=== PATIENT | male | born 1940 | race Hispanic/Latino ===

== ENCOUNTER 2017-09-25 07:00 | Inpatient (IN) | payer OTHER, MEDICARE ==
[~2017-09-25] VITALS: Ht 167.6 cm; Wt 61.6 kg
[~2017-09-25 07:00] MED LIST: CARV6.25 PO; FURO20TA4 PO; LISI2.5T2 PO; OMEP40CA37 PO; SIMV40TA59 PO
[2017-09-25] MEDS ORDERED: ASPIRIN 325 MG TABLET ONE (07:10)
[2017-09-25 07:26] LABS: BASOPHILS % (AUTO) 0.9 % (0.0-5.0); EOSINOPHILS % (AUTO) 3.4 % (0.0-8.0); HEMATOCRIT 46.9 % (42-54); LYMPHOCYTES % (AUTO) 27.6 % (21.0-51.0); MEAN CORPUSCULAR HEMOGLOBIN 26.2 pg (27.0-33.0); MEAN CORPUSCULAR HGB CONC 31.7 g/dL (32.0-36.0); MEAN CORPUSCULAR VOLUME 82.7 fL (79-99); MONOCYTES % (AUTO) 8.1 % (3.0-13.0); NUCLEATED RED BLOOD CELLS 0.1 % (0.0-0.19); PLATELET COUNT (AUTO) 200 K/uL (130-400); RED BLOOD CELL COUNT(AUTO) 5.68 MIL/uL (4.50-6.20); RED CELL DISTRIBUTION WIDTH 20.5 % (11.0-15.5); WHITE BLOOD COUNT (AUTO) 6.9 K/uL (4.8-10.8)
[2017-09-25 07:39] LABS: CARBON DIOXIDE 30 mmol/L (21-32); CHLORIDE 106 mmol/L (101-111); CREATININE 1.4 mg/dL (0.5-1.5); GLOMERULAR FILTR. RATE CALC 52 mL/min (>60); GLUCOSE,RANDOM 123 mg/dL (70-105); POTASSIUM 4.3 mmol/L (3.5-5.1); SODIUM SERUM 143 mmol/L (136-145); UREA NITROGEN, BLOOD 25 mg/dL (7-18)
[2017-09-25 07:54] LABS: ALANINE AMINOTRANSFERASE 14 U/L (12-78); ALBUMIN 3.4 g/dL (3.5-5.0); ASPARTATE AMINOTRANSFERASE 26 U/L (10-37); BILIRUBIN,TOTAL 0.9 mg/dL (0.2-1.0); CREATINE KINASE MB < 0.5 ng/mL (0.5-3.6); CREATINE KINASE, TOTAL 34 U/L (21-232); TOTAL PROTEIN, SERUM 7.8 g/dL (6.0-8.3)
[2017-09-25 07:55] LABS: B-TYPE NATRIURETIC PEPTIDE 1140 pg/mL (0-100)
[2017-09-25 07:59] LABS: INR 1.07 (0.85-1.15); PARTIAL THROMBOPLASTIN TIME 26.6 SEC (26.3-35.5); PROTHROMBIN TIME 11.2 SEC (9.6-11.6)
[2017-09-25] MEDS ORDERED: FUROSEMIDE 10 MG/ML 4ML VIAL ONE (08:07)
[2017-09-25] MEDS ORDERED: FUROSEMIDE 10 MG/ML 2ML VIAL ONE (08:07)
[2017-09-25 20:45] VITALS: BP 100/57
[2017-09-25] MEDS ORDERED: ASPI-1005 PO (21:17)
[2017-09-25] MEDS: FUROSEMIDE 10 MG/ML 2ML VIAL IVP SCH (21:59)
[2017-09-25 23:45] VITALS: BP 101/62
[2017-09-26 03:36] VITALS: BP 116/76
[2017-09-26 07:45] VITALS: BP 106/65
[2017-09-26] MEDS: FUROSEMIDE 10 MG/ML 2ML VIAL IVP SCH ×2 (09:30→20:39)
[2017-09-26 11:18] VITALS: BP 107/68
[2017-09-26 16:31] VITALS: BP 110/61
[2017-09-26 19:33] VITALS: BP 105/67
[2017-09-26] MEDS ORDERED: [UNRECOGNIZED DRUG - CODE] IV (22:35)
[2017-09-26] MEDS ORDERED: ENOX30DI4 SQ (22:35)
[2017-09-26] MEDS ORDERED: LEVOFLOXACIN 750 MG/D5W 150 ML 150 ML ONE (23:26)
[2017-09-26] MEDS: LEVOFLOXACIN 750 MG/D5W 150 ML 150 ML IV SCH (23:32)
[2017-09-27] VITALS: BP 107/67
[2017-09-27 04:00] VITALS: BP 109/59
[2017-09-27 05:18] LABS: HEMATOCRIT 44.9 % (42-54); MEAN CORPUSCULAR HEMOGLOBIN 26.6 pg (27.0-33.0); MEAN CORPUSCULAR HGB CONC 32.6 g/dL (32.0-36.0); MEAN CORPUSCULAR VOLUME 81.5 fL (79-99); NUCLEATED RED BLOOD CELLS 0.2 % (0.0-0.19); PLATELET COUNT (AUTO) 214 K/uL (130-400); RED BLOOD CELL COUNT(AUTO) 5.51 MIL/uL (4.50-6.20); RED CELL DISTRIBUTION WIDTH 19.6 % (11.0-15.5)
[2017-09-27 05:53] LABS: CARBON DIOXIDE 27 mmol/L (21-32); CHLORIDE 98 mmol/L (101-111); CREATINE KINASE MB < 0.5 ng/mL (0.5-3.6); CREATINE KINASE, TOTAL 25 U/L (21-232); CREATININE 1.5 mg/dL (0.5-1.5); GLOMERULAR FILTR. RATE CALC 48 mL/min (>60); GLUCOSE,RANDOM 96 mg/dL (70-105); MYOGLOBIN 36 ng/mL (10-92); POTASSIUM 3.7 mmol/L (3.5-5.1); SODIUM SERUM 137 mmol/L (136-145); TROPONIN I < 0.04 ng/mL (0.00-0.06); UREA NITROGEN, BLOOD 26 mg/dL (7-18)
[2017-09-27 06:26] LABS: B-TYPE NATRIURETIC PEPTIDE 652 pg/mL (0-100)
[2017-09-27 07:00] LABS: EOSINOPHILS % (MANUAL) 4 % (1-6); LYMPHOCYTES % (MANUAL) 11 % (22-44); MAN.DIFF COMMENT-IMPRESSION MANUAL DIFFERENTIAL; MONOCYTES % (MANUAL) 13 % (2-9); REACTIVE LYMPHOCYTES 1 % (0-0); SEGMENTED NEUTROPHILS % 71 % (40-70)
[2017-09-27 07:01] LABS: PLATELET MORPHOLOGY COMMENT ADEQUATE
[2017-09-27 07:43] VITALS: BP 111/73
[2017-09-27] MEDS: LISINOPRIL 5 MG TABLET PO SCH (08:54)
[2017-09-27] MEDS: ASPIRIN 81MG TAB.CHEW PO SCH (08:54)
[2017-09-27] MEDS: ENOXAPARIN SODIUM 30 MG/0.3 ML SQ SCH (08:55)
[2017-09-27] MEDS: PANTOPRAZOLE SODIUM 40 MG TABLET.DR PO SCH (08:55)
[2017-09-27] MEDS ORDERED: LEVOFLOXACIN 750 MG/D5W 150ML BAG IV SCH (09:00)
[2017-09-27] MEDS ORDERED: CARVEDILOL 6.25 MG TABLET PO SCH (09:00)
[2017-09-27] MEDS: FUROSEMIDE 10 MG/ML 2ML VIAL IVP SCH ×2 (09:01→20:36)
[2017-09-27 11:21] VITALS: BP 99/63
[2017-09-27] MEDS ORDERED: POTASSIUM CHLORIDE 20MEQ/100ML 100 ML IV PRN (15:45)
[2017-09-27] MEDS ORDERED: POTASSIUM CHLORIDE 10% ELIXIR 20 MEQ/15 ML UDCUP PO PRN (15:45)
[2017-09-27] MEDS ORDERED: LIDOCAINE HCL-MPF 1% 2ML VIAL IVP PRN (15:45)
[2017-09-27 16:06] VITALS: BP 90/57
[2017-09-27] MEDS: POTASSIUM CHLORIDE 20 MEQ ERTAB PO PRN ×2 (16:07→18:07)
[2017-09-27 20:06] VITALS: BP 93/59
[2017-09-27] MEDS: CARVEDILOL 6.25 MG TABLET PO SCH (20:33)
[2017-09-27] MEDS: ATORVASTATIN CALCIUM 20 MG TABLET PO SCH (20:37)
[2017-09-28 00:11] VITALS: BP 110/66
[2017-09-28 04:30] VITALS: BP 105/68
[2017-09-28 05:17] LABS: HEMATOCRIT 45.5 % (42-54); MEAN CORPUSCULAR HEMOGLOBIN 26.9 pg (27.0-33.0); MEAN CORPUSCULAR HGB CONC 32.8 g/dL (32.0-36.0); PLATELET COUNT (AUTO) 222 K/uL (130-400); RED BLOOD CELL COUNT(AUTO) 5.54 MIL/uL (4.50-6.20); RED CELL DISTRIBUTION WIDTH 19.5 % (11.0-15.5)
[2017-09-28 05:30] LABS: CREATININE 1.7 mg/dL (0.5-1.5); POTASSIUM 4.6 mmol/L (3.5-5.1)
[2017-09-28 05:35] LABS: BAND NEUTROPHILS % (MANUAL) 10 % (0-2); EOSINOPHILS % (MANUAL) 5 % (1-6); LYMPHOCYTES % (MANUAL) 18 % (22-44); MAN.DIFF COMMENT-IMPRESSION MANUAL DIFFERENTIAL; MONOCYTES % (MANUAL) 6 % (2-9); PLATELET MORPHOLOGY COMMENT ADEQUATE; SEGMENTED NEUTROPHILS % 61 % (40-70)
[2017-09-28 07:49] VITALS: BP 114/71
[2017-09-28] MEDS: CARVEDILOL 6.25 MG TABLET PO SCH ×2 (09:22→21:50)
[2017-09-28] MEDS: ASPIRIN 81MG TAB.CHEW PO SCH (09:22)
[2017-09-28] MEDS: FUROSEMIDE 10 MG/ML 2ML VIAL IVP SCH ×3 (09:23→22:24)
[2017-09-28] MEDS: PANTOPRAZOLE SODIUM 40 MG TABLET.DR PO SCH (09:23)
[2017-09-28] MEDS: LISINOPRIL 5 MG TABLET PO SCH (09:23)
[2017-09-28] MEDS: ENOXAPARIN SODIUM 30 MG/0.3 ML SQ SCH (09:24)
[2017-09-28] MEDS ORDERED: REGADENOSON 0.4 MG/5 ML PF SYG IVP SCH (11:00)
[2017-09-28 11:23] VITALS: BP 116/73
[2017-09-28 16:33] VITALS: BP 91/58
[2017-09-28 19:53] VITALS: BP 99/54
[2017-09-28] MEDS: ATORVASTATIN CALCIUM 20 MG TABLET PO SCH (21:48)
[2017-09-28] MEDS: LEVOFLOXACIN 750 MG/D5W 150 ML 150 ML IV SCH (21:50)
[2017-09-29 00:34] VITALS: BP 94/60
[2017-09-29] MEDS ORDERED: FUROSEMIDE 20 MG TABLET PO SCH ×2 (01:45→09:00)
[2017-09-29 04:20] VITALS: BP 122/67
[2017-09-29 04:27] LABS: HEMATOCRIT 43.9 % (42-54); MEAN CORPUSCULAR HEMOGLOBIN 26.3 pg (27.0-33.0); MEAN CORPUSCULAR HGB CONC 32.4 g/dL (32.0-36.0); MEAN CORPUSCULAR VOLUME 81.2 fL (79-99); NUCLEATED RED BLOOD CELLS 0.1 % (0.0-0.19); PLATELET COUNT (AUTO) 236 K/uL (130-400); RED BLOOD CELL COUNT(AUTO) 5.41 MIL/uL (4.50-6.20); RED CELL DISTRIBUTION WIDTH 19.4 % (11.0-15.5); WHITE BLOOD COUNT (AUTO) 5.9 K/uL (4.8-10.8)
[2017-09-29 04:34] LABS: CREATININE 1.6 mg/dL (0.5-1.5); POTASSIUM 3.9 mmol/L (3.5-5.1)
[2017-09-29 04:40] LABS: BAND NEUTROPHILS % (MANUAL) 3 % (0-2); EOSINOPHILS % (MANUAL) 3 % (1-6); LYMPHOCYTES % (MANUAL) 21 % (22-44); MAN.DIFF COMMENT-IMPRESSION MANUAL DIFFERENTIAL; MONOCYTES % (MANUAL) 16 % (2-9); PLATELET MORPHOLOGY COMMENT ADEQUATE; SEGMENTED NEUTROPHILS % 57 % (40-70)
[2017-09-29 07:00] VITALS: BP 98/62
[2017-09-29] MEDS ORDERED: FURO40TA5 PO (07:22)
[2017-09-29] MEDS ORDERED: LISINOPRIL 2.5 MG TABLET PO SCH (07:30)
[2017-09-29] MEDS ORDERED: FUROSEMIDE 40 MG TABLET PO SCH (09:00)
[2017-09-29 11:00] VITALS: BP 107/74
[2017-09-29] MEDS: ENOXAPARIN SODIUM 30 MG/0.3 ML SQ SCH (11:13)
[2017-09-29] MEDS: ASPIRIN 81MG TAB.CHEW PO SCH (11:13)
[2017-09-29] MEDS: PANTOPRAZOLE SODIUM 40 MG TABLET.DR PO SCH (11:13)
[2017-09-29 11:14] VITALS: BP 98/62
[2017-09-29] MEDS: CARVEDILOL 6.25 MG TABLET PO SCH (11:14)
== END 2017-09-29 15:00 | disposition home or self-care (01) | DRG 291 ==
LOC: EDH 07:00 → EDHIP 08:15 → 2AH 20:03
PROVIDERS: ADMIT Internal Medicine; ATTEND Internal Medicine
DX: I13.0 Hypertensive heart and chronic kidney disease with heart failure and stage 1 through stage 4 chronic kidney disease, or unspecified chronic kidney disease (principal); J18.9 Pneumonia, unspecified organism; J84.10 Pulmonary fibrosis, unspecified; J44.0 Chronic obstructive pulmonary disease with (acute) lower respiratory infection; N18.3 Chronic kidney disease, stage 3 (moderate); Z79.01 Long term (current) use of anticoagulants; Z95.1 Presence of aortocoronary bypass graft; I50.23 Acute on chronic systolic (congestive) heart failure; I25.5 Ischemic cardiomyopathy; I25.119 Atherosclerotic heart disease of native coronary artery with unspecified angina pectoris; E78.5 Hyperlipidemia, unspecified; Z60.2 Problems related to living alone; Z87.891 Personal history of nicotine dependence; Z95.0 Presence of cardiac pacemaker
CPT/HCPCS: 36415; 71045; 71250; 78452; 80048; 80053; 82550; 82553; 83874; 83880; 84484; 85025; 85610; 85730; 93005; 93017; 93306; 94660; 96374; A9500; J1650; J1940; J1956; J2785

== ENCOUNTER 2019-04-30 12:00 | Observation (INO) | payer OTHER, MEDICARE ==
[~2019-04-30] VITALS: Ht 167.6 cm; Wt 66.5 kg
[~2019-04-30 12:00] MED LIST changes: +ASPI-1005 PO; -FURO20TA4 PO; +FURO40TA5 PO
[2019-04-30 12:36] LABS: BASOPHILS % (AUTO) 0.7 % (0.0-5.0); EOSINOPHILS % (AUTO) 2.1 % (0.0-8.0); HEMATOCRIT 54.5 % (42-54); LYMPHOCYTES % (AUTO) 21.7 % (21.0-51.0); MEAN CORPUSCULAR HGB CONC 32.4 g/dL (32.0-36.0); MEAN CORPUSCULAR VOLUME 86.4 fL (79-99); MONOCYTES % (AUTO) 15.4 % (3.0-13.0); NEUTROPHILS % (AUTO) 60.1 % (40.0-77.0); PLATELET COUNT (AUTO) 205 K/uL (130-400); RED BLOOD CELL COUNT(AUTO) 6.31 MIL/uL (4.50-6.20); RED CELL DISTRIBUTION WIDTH 16.7 % (11.0-15.5); WHITE BLOOD COUNT (AUTO) 9.3 K/uL (4.8-10.8)
[2019-04-30 12:57] LABS: CREATININE 1.8 mg/dL (0.5-1.5); POTASSIUM 4.6 mmol/L (3.5-5.1)
[2019-04-30 13:01] LABS: ALBUMIN 3.6 g/dL (3.5-5.0); BILIRUBIN,TOTAL 0.8 mg/dL (0.2-1.0); TOTAL PROTEIN, SERUM 8.3 g/dL (6.0-8.3)
[2019-04-30 19:00] VITALS: BP 106/60
[2019-04-30] MEDS ORDERED: ASPI-1026 PO (22:27)
[2019-04-30] MEDS ORDERED: SIMV40TA59 PO (22:27)
[2019-04-30] MEDS ORDERED: TRAM50TA4 PO (22:27)
[2019-04-30] MEDS ORDERED: PANT40TA25 PO (22:27)
[2019-04-30] MEDS ORDERED: METO50TA18 PO (22:27)
[2019-04-30] MEDS ORDERED: ACET1TAB25 PO (22:27)
[2019-04-30] MEDS ORDERED: FURO20TA4 PO (22:27)
[2019-05-01 00:28] VITALS: BP 113/55
[2019-05-01 04:43] LABS: HEMATOCRIT 49.9 % (42-54); MEAN CORPUSCULAR HEMOGLOBIN 28.2 pg (27.0-33.0); MEAN CORPUSCULAR HGB CONC 32.9 g/dL (32.0-36.0); PLATELET COUNT (AUTO) 205 K/uL (130-400); RED BLOOD CELL COUNT(AUTO) 5.81 MIL/uL (4.50-6.20); RED CELL DISTRIBUTION WIDTH 16.8 % (11.0-15.5); WHITE BLOOD COUNT (AUTO) 8.1 K/uL (4.8-10.8)
[2019-05-01 04:54] LABS: ALBUMIN 2.8 g/dL (3.5-5.0); BILIRUBIN,TOTAL 0.7 mg/dL (0.2-1.0); CREATININE 1.5 mg/dL (0.5-1.5); POTASSIUM 4.1 mmol/L (3.5-5.1); TOTAL PROTEIN, SERUM 6.8 g/dL (6.0-8.3)
[2019-05-01] MEDS ORDERED: TRAMADOL HCL 50 MG TABLET PO PRN (07:15)
[2019-05-01] MEDS ORDERED: PANTOPRAZOLE SODIUM 40 MG TABLET.DR PO SCH (07:30)
[2019-05-01 08:00] VITALS: BP 118/60
[2019-05-01] MEDS ORDERED: FUROSEMIDE 20 MG TABLET PO SCH (09:00)
[2019-05-01] MEDS ORDERED: ASPIRIN 325 MG TABLET PO SCH (09:00)
[2019-05-01 11:47] VITALS: BP 117/52
--- NOTE | 2019-05-01 16:00 | NUR ---
PATIENT DISCHARGE INSTRUCTION. ALL QUESTIONS ANSWERED. IV DISCONTINUED WITH INNER CANNULA INTACT. INSTRUCTED TO FOLLOW UP WITH DR. BEAULIEU AND DR. STOREY APPOINTMENTS WERE BOTH MADE. FAMILY MEMBER HERE TO TRANSPORT PATIENT HOME.
[2019-05-01] MEDS ORDERED: SIMVASTATIN 20 MG TABLET PO SCH (21:00)
== END 2019-05-01 16:05 | disposition home or self-care (01) ==
LOC: EDH 12:00 → EDHIP 12:56 → 3BH 19:10
PROVIDERS: ADMIT Internal Medicine; ATTEND Internal Medicine
DX: R00.1 Bradycardia, unspecified (principal); E78.5 Hyperlipidemia, unspecified; I11.0 Hypertensive heart disease with heart failure; I50.9 Heart failure, unspecified; I25.10 Atherosclerotic heart disease of native coronary artery without angina pectoris; I25.5 Ischemic cardiomyopathy; J44.9 Chronic obstructive pulmonary disease, unspecified; Z95.1 Presence of aortocoronary bypass graft; Z95.810 Presence of automatic (implantable) cardiac defibrillator; Z79.899 Other long term (current) drug therapy
CPT/HCPCS: 36415 ×2; 70450; 80053 ×2; 85025; 85027; 93005; 99284; G0378 ×27

== ENCOUNTER 2019-09-23 05:31 | Emergency (ER) | payer OTHER, MEDICARE ==
[~2019-09-23 05:31] MED LIST changes: +ACET1TAB25 PO; -ASPI-1005 PO; +ASPI-1026 PO; -CARV6.25 PO; +FURO20TA4 PO; -FURO40TA5 PO; -LISI2.5T2 PO; +METO50TA18 PO; -OMEP40CA37 PO; +PANT40TA25 PO; +TRAM50TA4 PO
[2019-09-23] MEDS ORDERED: KETOROLAC TROMETHAMINE 15MG/ML ONE (06:13)
[2019-09-23] MEDS ORDERED: ONDANSETRON HCL 4 MG/2 ML VIAL ONE (06:13)
[2019-09-23] MEDS ORDERED: SODIUM CHLORIDE 0.9% 500ML 500 ML IV ONE (06:13)
[2019-09-23 06:16] LABS: BASOPHILS % (AUTO) 0.6 % (0.0-5.0); EOSINOPHILS % (AUTO) 3.2 % (0.0-8.0); HEMATOCRIT 47.2 % (42-54); LYMPHOCYTES % (AUTO) 20.4 % (21.0-51.0); MEAN CORPUSCULAR HEMOGLOBIN 27.5 pg (27.0-33.0); MEAN CORPUSCULAR HGB CONC 32.6 g/dL (32.0-36.0); MEAN CORPUSCULAR VOLUME 84.1 fL (79-99); MONOCYTES % (AUTO) 11.1 % (3.0-13.0); NEUTROPHILS % (AUTO) 64.5 % (40.0-77.0); PLATELET COUNT (AUTO) 254 K/uL (130-400); RED BLOOD CELL COUNT(AUTO) 5.61 MIL/uL (4.50-6.20); RED CELL DISTRIBUTION WIDTH 18.2 % (11.0-15.5); WHITE BLOOD COUNT (AUTO) 9.3 K/uL (4.8-10.8)
[2019-09-23 06:29] LABS: CREATININE 1.2 mg/dL (0.5-1.5); POTASSIUM 4.1 mmol/L (3.5-5.1)
[2019-09-23 06:33] LABS: ALBUMIN 3.2 g/dL (3.5-5.0); BILIRUBIN,DIRECT 0.2 mg/dL (0.0-0.3); BILIRUBIN,TOTAL 0.7 mg/dL (0.2-1.0); TOTAL PROTEIN, SERUM 7.1 g/dL (6.0-8.3)
== END 2019-09-23 07:05 | disposition home or self-care (01) ==
LOC: EDH 05:31
DX: R10.9 Unspecified abdominal pain (principal); I25.10 Atherosclerotic heart disease of native coronary artery without angina pectoris; Z98.890 Other specified postprocedural states; Z87.891 Personal history of nicotine dependence
CPT/HCPCS: 36415; 74176; 80048; 80076; 82550; 83690; 84484; 85025; 93005; 96374; 96375; 99285; J1885; J2405; J7040